=== PATIENT | male | born 1990 | race Caucasian/White ===

== ENCOUNTER 2018-04-21 22:50 | Emergency (ER) | payer OTHER, SELFPAY ==
[~2018-04-21] VITALS: Ht 182.9 cm; Wt 126.0 kg
[2018-04-21 23:23] VITALS: BP 142/84
[2018-04-22] MEDS ORDERED: LIDOCAINE HCL 1% 20ML VIAL (Pyxis) INJ INFIL ONE
[2018-04-22] MEDS ORDERED: TETANUS AND DIPHTHERIA TOX/PF 0.5ML SYR (ADULT) IM ONE
[2018-04-22] MEDS ORDERED: IBUPROFEN 600MG TABLET PO ONE (00:45)
[2018-04-22] MEDS ORDERED: BACITRACIN ZINC OINT UDPKT TOP ONE (01:15)
[2018-04-22] MEDS ORDERED: TETANUS, DIPHTHERIA, PERTUSSIS VAC/PF 0.5ML (>7YR OLD) IM ONE (01:45)
== END 2018-04-22 02:06 | disposition home or self-care (01) ==
LOC: ER 23:50
DX: S61.012A Laceration without foreign body of left thumb without damage to nail, initial encounter (principal); F17.200 Nicotine dependence, unspecified, uncomplicated; J45.909 Unspecified asthma, uncomplicated; W45.8XXA Other foreign body or object entering through skin, initial encounter; Y93.89 Activity, other specified; Y92.89 Other specified places as the place of occurrence of the external cause; Y99.8 Other external cause status; Z90.49 Acquired absence of other specified parts of digestive tract
CPT/HCPCS: 12001; 90714; 99283; J3490; 90715